=== PATIENT | male | born 1970 | race Hispanic/Latino ===

== ENCOUNTER 2020-06-03 16:01 | Observation (INO) | payer BC ==
--- NOTE | 2020-06-04 02:25 | Emergency Department Report ---
ED General Adult HPI - General Chief complaint: Dyspnea/Respdistress Stated complaint: SOB/SWELLING PUI?: No Time Seen by Provider: 06/04/20 02:17 Source: patient, RN notes reviewed Mode of arrival: Ambulatory Limitations: No Limitations - History of Present Illness Initial comments: The patient was evaluated in the emergency department for symptoms described in the history of present illness. He/she was evaluated in the context of the global COVID-19 pandemic, which necessitated consideration that the patient might be at risk for infection with the virus that causes COVID-19. Institutional protocols and algorithms that pertain to the evaluation of patients at risk for COVID-19 are in a state of rapid change based on i nformation released by regulatory bodies including the CDC and federal and state organizations. These policies and algorithms were followed during the patient's care in the emergency department. Please note that these policies, procedures and recommendations changed on a rapid basis. The patient is a pleasant 50-year-old gentleman who is not known to myself previously. He has a history of type 2 diabetes He presents to the ER today with a complaint of painless shortness of breath, swelling, and unintentional weight gain. This has been going on for about the past month. He denies physical pain. He denies headache, neck pain, chest pain, abdominal pain. He denies unintentional 30 pound weight gain, swelling in his abdomen, lower extremities, and scrotum. He denies hematemesis and bright red blood per rectum. He denies loss of taste and smell. He has a relatively new onset exertional shortness of breath, which started over the past few weeks. -: Gradual, week(s) Location: abdomen, genitals, left, right, lower extremity Consistency: constant Improves with: none Worsens with: none - Related Data Home Medications Medication Instructions Recorded Confirmed Last Taken HumaLOG 7 units SUB-Q QACHS 06/04/20 06/04/20 Unknown Insulin Detemir (Nf) [Levemir 06/04/20 Unknown Flextouch (Nf)] Insulin Detemir (Nf) [Levemir 22 unit SQ QHS 06/04/20 06/04/20 Unknown Flextouch (Nf)] Previous Rx's Medication Instructions Recorded Last Taken Type Furosemide [Lasix] 20 mg PO QDAY #30 tablet 10/02/20 Unknown Rx carvediloL [Coreg] 12.5 mg PO BID #60 tablet 06/06/20 Unknown Rx hydrALAZINE [Apresoline TAB] 25 mg PO Q8HR #90 tablet 06/06/20 Unknown Rx lisinopriL [Zestril TAB] 20 mg PO DAILY #30 tablet 06/06/20 Unknown Rx Allergies Allergy/AdvReac Type Severity Reaction Status Date / Time No Known Allergies Allergy Unverified 06/03/20 16:17 ED Review of Systems ROS: Stated complaint: SOB/SWELLING Other details as noted in HPI Constitutional: malaise. denies: fever Eyes: denies: eye discharge ENT: congestion Respiratory: orthopnea, shortness of breath, SOB with exertion, SOB at rest. denies: cough Cardiovascular: dyspnea on exertion, orthopnea, edema. denies: chest pain Gastrointestinal: denies: nausea, vomiting, hematemesis, melena, hematochezia Genitourinary: as per HPI, other (Scrotal swelling, but no pain). denies: urgency, dysuria, testicular pain, testicular mass Neurological: weakness Hematological/Lymphatic: denies: easy bleeding ED Past Medical Hx - Past Medical History Hx Diabetes: Yes Hx HIV: Yes - Surgical History Additional Surgical History: removal small left toe - Social History Smoking Status: Never Smoker Substance Use Type: None - Medications Home Medications: Home Medications Medication Instructions Recorded Confirmed Last Taken Type HumaLOG 7 units SUB-Q QACHS 06/04/20 06/04/20 Unknown History Insulin Detemir (Nf) [Levemir 06/04/20 Unknown History Flextouch (Nf)] Insulin Detemir (Nf) [Levemir 22 unit SQ QHS 06/04/20 06/04/20 Unknown History Flextouch (Nf)] Furosemide [Lasix] 20 mg PO QDAY #30 tablet 06/06/20 Unknown Rx carvediloL [Coreg] 12.5 mg PO BID #60 tablet 06/06/20 Unknown Rx hydrALAZINE [Apresoline TAB] 25 mg PO Q8HR #90 tablet 06/06/20 Unknown Rx lisinopriL [Zestril TAB] 20 mg PO DAILY #30 tablet 06/06/20 Unknown Rx ED Physical Exam - General Limitations: No Limitations General appearance: alert, in no apparent distress - Head Head exam: Present: atraumatic, normocephalic - Eye Eye exam: Present: normal appearance, EOMI, other (Bilateral conjunctiva are pale.). Absent: nystagmus - ENT ENT exam: Present: normal exam, normal orophraynx, mucous membranes moist, normal external ear exam - Neck Neck exam: Present: normal inspection - Respiratory Respiratory exam: Present: normal lung sounds bilaterally. Absent: respiratory distress, wheezes, rales, rhonchi, stridor, decreased breath sounds - Cardiovascular Cardiovascular Exam: Present: regular rate, normal rhythm, normal heart sounds. Absent: bradycardia, tachycardia, irregular rhythm, systolic murmur, diastolic murmur, rubs, gallop - GI/Abdominal GI/Abdominal exam: Present: soft, distended, normal bowel sounds, other (Fluid wave is noted). Absent: tenderness, guarding, rebound, rigid, pulsatile mass - Rectal Rectal exam: Present: deferred - Extremities Exam Extremities exam: Present: normal inspection, full ROM, pedal edema (3+ edema in the bilateral lower extremity), other (2+ pulses noted in the bilateral upper and lower extremities. There is no palpable cord. negative Homans sign. Muscular compartments are soft. The pelvis is stable.). Absent: calf tenderness - Back Exam Back exam: Present: normal inspection, full ROM. Absent: tenderness, CVA tenderness (R), CVA tenderness (L), paraspinal tenderness, vertebral tenderness - Neurological Exam Neurological exam: Present: alert, oriented X3, normal gait, other (No facial droop. Tongue midline. Extraocular movements intact bilaterally. Facial sensation intact to light touch in V1, V2, V3 distribution bilaterally. 5 and a 5 strength in 4 extremities. Sensation intact to light touch in 4 extremities.). Absent: motor sensory deficit - Psychiatric Psychiatric exam: Present: normal affect, normal mood - Skin Skin exam: Present: warm, dry, intact, normal color. Absent: rash ED Course Vital Signs 06/03/20 06/04/20 06/04/20 16:16 03:00 03:15 Temperature 97.8 F Pulse Rate 80 76 76 Respiratory 18 18 20 Rate Blood Pressure 168/99 182/99 186/102 Blood Pressure [Left] O2 Sat by Pulse 98 98 98 Oximetry 06/04/20 06/04/20 06/04/20 03:30 03:45 03:48 Temperature 97.6 F Pulse Rate 76 75 76 Respiratory 22 18 23 Rate Blood Pressure 185/98 179/93 Blood Pressure 179/93 [Left] O2 Sat by Pulse 98 94 97 Oximetry 06/04/20 06/04/20 06/04/20 04:30 04:45 05:00 Temperature Pulse Rate 76 76 76 Respiratory 21 19 18 Rate Blood Pressure 185/99 182/100 173/91 Blood Pressure [Left] O2 Sat by Pulse 98 97 99 Oximetry 06/04/20 06/04/20 06/04/20 05:15 05:30 05:45 Temperature Pulse Rate 75 75 76 Respiratory 18 13 19 Rate Blood Pressure 165/84 165/84 171/94 Blood Pressure [Left] O2 Sat by Pulse 97 97 98 Oximetry 06/04/20 06/04/20 06/04/20 06:00 06:15 06:44 Temperature Pulse Rate 74 74 84 Respiratory 18 18 15 Rate Blood Pressure 168/88 172/93 172/93 Blood Pressure [Left] O2 Sat by Pulse 96 98 97 Oximetry 06/04/20 06/04/20 06/04/20 06:46 07:00 07:15 Temperature Pulse Rate 79 76 73 Respiratory 22 19 14 Rate Blood Pressure 139/80 139/80 171/85 Blood Pressure [Left] O2 Sat by Pulse 98 98 97 Oximetry 06/04/20 06/04/20 06/04/20 07:30 07:46 08:00 Temperature Pulse Rate 76 76 77 Respiratory 19 19 16 Rate Blood Pressure 156/80 156/80 165/82 Blood Pressure [Left] O2 Sat by Pulse 96 94 97 Oximetry 06/04/20 06/04/20 06/04/20 08:16 08:30 08:45 Temperature Pulse Rate 77 76 76 Respiratory 15 13 13 Rate Blood Pressure 165/82 Blood Pressure [Left] O2 Sat by Pulse 93 96 97 Oximetry 06/04/20 06/04/20 06/04/20 09:01 09:15 09:31 Temperature Pulse Rate 78 78 79 Respiratory 17 20 19 Rate Blood Pressure 152/64 238/126 238/126 Blood Pressure [Left] O2 Sat by Pulse 95 98 98 Oximetry 06/04/20 06/04/20 09:45 10:01 Temperature Pulse Rate 75 76 Respiratory 16 15 Rate Blood Pressure 132/63 132/63 Blood Pressure [Left] O2 Sat by Pulse 98 98 Oximetry - Reevaluation(s) Reevaluation #1: 06/04/20 03:32 Differential diagnosis, including but not limited to: Renal insufficiency, hepatic insufficiency, congestive heart failure Assessment and plan: 50-year-old gentleman with obvious lower extremity edema, ascites, appears quite pale, without DVT or pulmonary embolism risk factors, denies hematemesis and bright red blood per rectum, showing obvious evidence of fluid overload. Appropriate laboratory studies ordered and pending. X-ray of the chest, EKG, ordered and pending. We anticipate need for admission once initial diagnostics have resulted. Discussed this plan of care with the patient, who verbalized understanding, and who is amenable to this plan of care. Reevaluation #2: 06/04/20 04:50 Laboratory studies demonstrate thrombocytopenia, microcytic anemia, elevated troponin, likely type II troponin leak, elevated proBNP, and pleural effusions. Suspect congestive heart failure. Patient is amenable to hospitalization. He denies hematemesis and bright red blood per rectum. He is never had a colonoscopy. He denies unintentional weight loss. Lasix is ordered. Hospital physician will be paged to arrange admission. Care will be transferred to the oncoming ER physician, Dr. Ruiz to admit patient to the hospitalist service. 06/04/20 05:42 ED Medical Decision Making - Lab Data Result diagrams: 06/05/20 06:30 06/06/20 04:16 Vital Signs 06/03/20 16:16 Temperature 97.8 F Pulse Rate 80 Respiratory 18 Rate Blood Pressure 168/99 O2 Sat by Pulse 98 Oximetry Lab Results 06/04/20 06/04/20 Range/Units 02:34 02:34 WBC 2.3 L (4.5-11.0) K/mm3 RBC 3.39 L (3.65-5.03) M/mm3 Hgb 8.8 L (11.8-15.2) gm/dl Hct 26.4 L (35.5-45.6) % MCV 78 L (84-94) fl MCH 26 L (28-32) pg MCHC 33 (32-34) % RDW 17.9 H (13.2-15.2) % Plt Count 79 L (140-440) K/mm3 Lymph % (Auto) 34.8 (13.4-35.0) % Trinity % (Auto) 11.5 H (0.0-7.3) % Eos % (Auto) 3.8 (0.0-4.3) % Baso % (Auto) 0.8 (0.0-1.8) % Lymph # (Auto) 0.8 L (1.2-5.4) K/mm3 Trinity # (Auto) 0.3 (0.0-0.8) K/mm3 Eos # (Auto) 0.1 (0.0-0.4) K/mm3 Baso # (Auto) 0.0 (0.0-0.1) K/mm3 Seg Neutrophils % 49.1 (40.0-70.0) % Seg Neutrophils # 1.1 L (1.8-7.7) K/mm3 PT 12.4 (12.2-14.9) Sec. INR 0.91 (0.87-1.13) APTT 29.2 (24.2-36.6) Sec. Vital Signs 06/03/20 06/04/20 06/04/20 16:16 03:00 03:15 Temperature 97.8 F Pulse Rate 80 76 76 Respiratory 18 18 20 Rate Blood Pressure 168/99 182/99 186/102 Blood Pressure [Left] O2 Sat by Pulse 98 98 98 Oximetry 06/04/20 06/04/20 06/04/20 03:30 03:45 03:48 Temperature 97.6 F Pulse Rate 76 75 76 Respiratory 22 18 23 Rate Blood Pressure 185/98 179/93 Blood Pressure 179/93 [Left] O2 Sat by Pulse 98 94 97 Oximetry Lab Results 06/04/20 06/04/20 06/04/20 Range/Units 02:34 02:34 02:34 WBC 2.3 L (4.5-11.0) K/mm3 RBC 3.39 L (3.65-5.03) M/mm3 Hgb 8.8 L (11.8-15.2) gm/dl Hct 26.4 L (35.5-45.6) % MCV 78 L (84-94) fl MCH 26 L (28-32) pg MCHC 33 (32-34) % RDW 17.9 H (13.2-15.2) % Plt Count 79 L (140-440) K/mm3 Lymph % (Auto) 34.8 (13.4-35.0) % Trinity % (Auto) 11.5 H (0.0-7.3) % Eos % (Auto) 3.8 (0.0-4.3) % Baso % (Auto) 0.8 (0.0-1.8) % Lymph # (Auto) 0.8 L (1.2-5.4) K/mm3 Trinity # (Auto) 0.3 (0.0-0.8) K/mm3 Eos # (Auto) 0.1 (0.0-0.4) K/mm3 Baso # (Auto) 0.0 (0.0-0.1) K/mm3 Seg Neutrophils % 49.1 (40.0-70.0) % Seg Neutrophils # 1.1 L (1.8-7.7) K/mm3 PT 12.4 (12.2-14.9) Sec. INR 0.91 (0.87-1.13) APTT 29.2 (24.2-36.6) Sec. Sodium 135 L (137-145) mmol/L Potassium 4.6 (3.6-5.0) mmol/L Chloride 108.4 H (98-107) mmol/L Carbon Dioxide 19 L (22-30) mmol/L Anion Gap 12 mmol/L BUN 24 H (9-20) mg/dL Creatinine 1.3 (0.8-1.3) mg/dL Estimated GFR 58 ml/min BUN/Creatinine Ratio 18 % Glucose 162 H (75-100) mg/dL Calcium 8.1 L (8.4-10.2) mg/dL Magnesium 2.10 (1.7-2.3) mg/dL Total Bilirubin 0.30 (0.1-1.2) mg/dL AST 17 (5-40) units/L ALT 12 (7-56) units/L Alkaline Phosphatase 71 (35-129) units/L Total Creatine Kinase 147 (55-170) units/L Troponin T 0.038 H (0.00-0.029) ng/mL NT-Pro-B Natriuret Pep 4134 H (0-900) pg/mL Total Protein 5.8 L (6.3-8.2) g/dL Albumin 2.4 L (3.9-5) g/dL Albumin/Globulin Ratio 0.7 % Triglycerides 140 (2-149) mg/dL Cholesterol 134 (50-199) mg/dL LDL Cholesterol Direct 80 (50-130) mg/dL HDL Cholesterol 35 L (40-59) mg/dL Cholesterol/HDL Ratio 3.82 % Ur Reducing Substances Urine Bilirubin (Negative) Urine Ictotest Urine RBC (Auto) (0.0-6.0) /HPF U Epithel Cells (Auto) (0-13.0) /HPF 06/04/20 Range/Units Unknown WBC (4.5-11.0) K/mm3 RBC (3.65-5.03) M/mm3 Hgb (11.8-15.2) gm/dl Hct (35.5-45.6) % MCV (84-94) fl MCH (28-32) pg MCHC (32-34) % RDW (13.2-15.2) % Plt Count (140-440) K/mm3 Lymph % (Auto) (13.4-35.0) % Trinity % (Auto) (0.0-7.3) % Eos % (Auto) (0.0-4.3) % Baso % (Auto) (0.0-1.8) % Lymph # (Auto) (1.2-5.4) K/mm3 Trinity # (Auto) (0.0-0.8) K/mm3 Eos # (Auto) (0.0-0.4) K/mm3 Baso # (Auto) (0.0-0.1) K/mm3 Seg Neutrophils % (40.0-70.0) % Seg Neutrophils # (1.8-7.7) K/mm3 PT (12.2-14.9) Sec. INR (0.87-1.13) APTT (24.2-36.6) Sec. Sodium (137-145) mmol/L Potassium (3.6-5.0) mmol/L Chloride (98-107) mmol/L Carbon Dioxide (22-30) mmol/L Anion Gap mmol/L BUN (9-20) mg/dL Creatinine (0.8-1.3) mg/dL Estimated GFR ml/min BUN/Creatinine Ratio % Glucose (75-100) mg/dL Calcium (8.4-10.2) mg/dL Magnesium (1.7-2.3) mg/dL Total Bilirubin (0.1-1.2) mg/dL AST (5-40) units/L ALT (7-56) units/L Alkaline Phosphatase (35-129) units/L Total Creatine Kinase (55-170) units/L Troponin T (0.00-0.029) ng/mL NT-Pro-B Natriuret Pep (0-900) pg/mL Total Protein (6.3-8.2) g/dL Albumin (3.9-5) g/dL Albumin/Globulin Ratio % Triglycerides (2-149) mg/dL Cholesterol (50-199) mg/dL LDL Cholesterol Direct (50-130) mg/dL HDL Cholesterol (40-59) mg/dL Cholesterol/HDL Ratio % Ur Reducing Substances Not Reportable Urine Bilirubin Neg (Negative) Urine Ictotest Not Reportable Urine RBC (Auto) 2.0 (0.0-6.0) /HPF U Epithel Cells (Auto) 2.0 (0-13.0) /HPF - EKG Data -: EKG Interpreted by Ca EKG shows normal: sinus rhythm Rate: normal - EKG Data 06/04/20 03:33 This is a sinus rhythm, 77 bpm, there is a normal axis, the QTC is prolonged, th ere is motion artifact, there is poor R wave progression. The EKG is abnormal. The EKG is not a STEMI. - Radiology Data Radiology results: pending, report reviewed, image reviewed Critical care attestation.: If time is entered above; I have spent that time in minutes in the direct care of this critically ill patient, excluding procedure time. ED Disposition Clinical Impression: Congestive heart failure, Fluid overload, Microcytic anemia, Thrombocytopenia Disposition: OP ADMIT IP TO THIS HOSP Is pt being admited?: Yes Does the pt Need Aspirin: Yes Condition: Good
[2020-06-04 03:11] LABS: Hematocrit 26.4 % (35.5-45.6); Hemoglobin 8.8 gm/dl (11.8-15.2); Mean Corpuscular HGB Conc 33 % (32-34); Mean Corpuscular Volume 78 fl (84-94); Red Blood Count 3.39 M/mm3 (3.65-5.03); Red Cell Distribution Width 17.9 % (13.2-15.2)
[2020-06-04 03:16] LABS: Platelet Count 79 K/mm3 (140-440)
[2020-06-04 03:17] LABS: Basophils % (Auto) 0.8 % (0.0-1.8); Eosinophils # (Auto) 0.1 K/mm3 (0.0-0.4); Eosinophils % (Auto) 3.8 % (0.0-4.3); Lymphocytes # (Auto) 0.8 K/mm3 (1.2-5.4); Lymphocytes % (Auto) 34.8 % (13.4-35.0); Monocytes # (Auto) 0.3 K/mm3 (0.0-0.8); Monocytes % (Auto) 11.5 % (0.0-7.3)
[2020-06-04 03:21] LABS: INR 0.91 (0.87-1.13); Partial Thromboplastin Time 29.2 Sec. (24.2-36.6)
[2020-06-04 03:58] LABS: Albumin 2.4 g/dL (3.9-5); Calcium 8.1 mg/dL (8.4-10.2)
[2020-06-04 04:16] LABS: Chol/HDL Ratio 3.82 %
[2020-06-04] MEDS ORDERED: FUROSEMIDE 40 MG/4 ML INJ IV ONE (04:17)
--- NOTE | 2020-06-04 04:19 | XRay Report ---
CHEST 1 VIEW 06/04/2020 4:05 AM INDICATION / CLINICAL INFORMATION: Dyspnea. COMPARISON: None available. FINDINGS: SUPPORT DEVICES: None. HEART / MEDIASTINUM: No significant abnormality. LUNGS / PLEURA: There are small bilateral pleural effusions. No pneumothorax. ADDITIONAL FINDINGS: No significant additional findings. IMPRESSION: 1. Small bilateral pleural effusions without additional significant abnormality. Signer Name: Emanuel Guzman MD Signed: 06/04/2020 4:14 AM Workstation Name: [employer]
[2020-06-04 04:47] LABS: Bacteria,Urine 1+ /HPF (Negative); Bilirubin,Urine NEG (Negative); Blood,Urine MOD (Negative); Color,Urine Yellow (Yellow); Hyaline Casts,Urine 26 /LPF; Mucus,Urine 1+ /HPF; Urobilinogen,Urine < 2.0 mg/dL (<2.0)
[2020-06-04] MEDS ORDERED: ASPIRIN 81 MG TAB CHEW PO ONE (04:52)
[2020-06-04 04:57] LABS: Protein,Urine >500 mg/dL (Negative)
--- NOTE | 2020-06-04 08:08 | History and Physical Report ---
History of Present Illness Date of examination: 06/04/20 Date of admission: 06/04/20 Chief complaint: Worsening shortness of breath Worsening leg edema for the last 4 weeks History of present illness: 50-year-old male patient with significant past medical history of type 2 diabetes mellitus, hypertension and HIV not on antiretrovirals presented to the emergency room with complaints of worsening leg edema and worsening shortness of breath off-and-on for the last 4 weeks Patient also complains of unintentional weight gain with edema of lower extremities and scrotum Patient also complains of exertional dyspnea and orthopnea, Mild chest discomfort Patient denies nausea vomiting or abdominal pain Patient denies headache dizziness weakness or numbness Initial work-up in the emergency room X-ray chest. Bilateral pleural effusion Elevated proBNP. Pancytopenia EKG no acute ST-T changes Past History Past Medical History: diabetes, HIV/AIDS, hypertension Past Surgical History: Other (Toe removal) Social history: full code. denies: smoking, alcohol abuse Family history: hypertension Medications and Allergies Allergies Allergy/AdvReac Type Severity Reaction Status Date / Time No Known Allergies Allergy Unverified 06/03/20 16:17 Home Medications Medication Instructions Recorded Confirmed Last Taken Type HumaLOG 7 units SUB-Q QACHS 06/04/20 06/04/20 Unknown History Insulin Detemir (Nf) [Levemir 06/04/20 Unknown History Flextouch (Nf)] Insulin Detemir (Nf) [Levemir 22 unit SQ QHS 06/04/20 06/04/20 Unknown History Flextouch (Nf)] Review of Systems Constitutional: weight gain, weakness, no fever, no chills Ears, nose, mouth and throat: no nasal congestion, no nasal discharge Cardiovascular: chest pain, orthopnea, shortness of breath, leg edema, no palpitations, no syncope Respiratory: shortness of breath, dyspnea on exertion, no cough, no hemoptysis Gastrointestinal: no abdominal pain, no nausea, no vomiting Genitourinary Male: other (Scrotal edema), no dysuria, no hematuria Musculoskeletal: no myalgias, no arthritis Integumentary: no rash, no lesions Neurological: no weakness, no parathesias, no numbness, no syncope Psychiatric: no anxiety, no depression Hematologic/Lymphatic: no easy bruising, no easy bleeding Allergic/Immunologic: no urticaria, no allergic rhinitis Exam - Constitutional Vitals: Temp Pulse Resp BP Pulse Ox 97.6 F 79 22 139/80 98 06/04/20 03:48 06/04/20 06:46 06/04/20 06:46 06/04/20 06:46 06/04/20 06:46 General appearance: Present: mild distress, well-nourished - EENT Eyes: Present: PERRL, EOM intact - Neck Neck: Present: supple, normal ROM - Respiratory Respiratory effort: normal Respiratory: bilateral: diminished, rales, negative: rhonchi, wheezing - Cardiovascular Rhythm: regular Heart Sounds: Present: S1 & S2 - Extremities Extremities: no ischemia Extremity abnormal: edema - Abdominal General gastrointestinal: Present: soft, non-tender, non-distended, normal bowel sounds, other (Edema abdominal wall) - Integumentary Integumentary: Present: clear, warm - Musculoskeletal Musculoskeletal: generalized weakness - Psychiatric Psychiatric: appropriate mood/affect, cooperative - Neurologic Neurologic: moves all extremities HEART Score - HEART Score Troponin: Troponin T 0.038 ng/mL (0.00-0.029) H 06/04/20 02:34 Results - Labs CBC & Chem 7: 06/04/20 02:34 06/04/20 02:34 Labs: Abnormal lab results 06/04/20 06/04/20 Range/Units 02:34 02:34 WBC 2.3 L (4.5-11.0) K/mm3 RBC 3.39 L (3.65-5.03) M/mm3 Hgb 8.8 L (11.8-15.2) gm/dl Hct 26.4 L (35.5-45.6) % MCV 78 L (84-94) fl MCH 26 L (28-32) pg RDW 17.9 H (13.2-15.2) % Plt Count 79 L (140-440) K/mm3 [place] % (Auto) 11.5 H (0.0-7.3) % Lymph # (Auto) 0.8 L (1.2-5.4) K/mm3 Seg Neutrophils # 1.1 L (1.8-7.7) K/mm3 Sodium 135 L (137-145) mmol/L Chloride 108.4 H (98-107) mmol/L Carbon Dioxide 19 L (22-30) mmol/L BUN 24 H (9-20) mg/dL Glucose 162 H (75-100) mg/dL Calcium 8.1 L (8.4-10.2) mg/dL Troponin T 0.038 H (0.00-0.029) ng/mL NT-Pro-B Natriuret Pep 4134 H (0-900) pg/mL Total Protein 5.8 L (6.3-8.2) g/dL Albumin 2.4 L (3.9-5) g/dL HDL Cholesterol 35 L (40-59) mg/dL Assessment and Plan --Worsening leg edema/possible congestive heart failure IV diuretics, elevate the limb, input output monitoring Echocardiogram for LV function ejection fraction --Mild hyponatremia; Secondary to fluid overload, IV diuretics Closely monitor electrolytes --Congestive heart failure/probably new onset Elevated BNP, worsening edema, shortness of breath IV diuretics, input output monitoring, beta-blockers CONCEPCIÓN inhibitors, fluid restriction, low-sodium diet Echocardiogram for LV function ejection fraction Cardiology consult if needed --Non-ST elevation ND; elevated troponins Probably nonspecific in the setting of congestive heart failure Serial cardiac enzymes, echocardiogram for LV function ejection fraction Cardiology consult if needed --History of type 2 diabetes mellitus; Accu-Cheks, sliding scale coverage, ADA diet Insulin as needed --Hypertensive urgency; present on admission Closely monitor blood pressures, add antihypertensives PRN medications --History of HIV; not on any medications Patient has an appointment to see infectious diseases next week --Pancytopenia; probably secondary to underlying HIV disease --Severe protein calorie malnutrition; nutrition supplements Supportive care, nutrition consult --DVT prophylaxis; Lovenox We will closely monitor the patient and adjust management as needed Plan of care reviewed with the patient and his nurse in the ED Follow echocardiogram, cardiology consult if needed I spent total 50 minutes coordinating this admission
[2020-06-04] MEDS ORDERED: INSULIN LISPRO 100 UNIT/ML VIAL 3 mL SUB-Q NR (08:27)
[2020-06-04 11:27] LABS: Creatine Kinase MB 9.1 ng/mL (0.0-4.0)
[2020-06-04] MEDS: ASPIRIN 81 MG TAB CHEW PO SCH (16:12)
[2020-06-04] MEDS: FUROSEMIDE 40 MG/4 ML INJ IV SCH (16:12)
[2020-06-04] MEDS: ENOXAPARIN 40 MG/0.4 ML INJ SUB-Q SCH (21:37)
[2020-06-04] MEDS: carvediloL 12.5 MG TAB PO SCH (21:37)
[2020-06-04] MEDS: LISINOPRIL 20 MG TAB PO SCH (21:37)
[2020-06-04] MEDS: hydrALAZINE 25 MG TAB PO SCH (21:37)
[2020-06-05 02:41] LABS: Creatine Kinase MB 6.8 ng/mL (0.0-4.0)
[2020-06-05] MEDS: hydrALAZINE 25 MG TAB PO SCH ×3 (05:40→22:00)
[2020-06-05 07:13] LABS: Hematocrit 23.1 % (35.5-45.6); Hemoglobin 7.9 gm/dl (11.8-15.2); Mean Corpuscular HGB Conc 34 % (32-34); Mean Corpuscular Volume 77 fl (84-94); Red Cell Distribution Width 18.1 % (13.2-15.2)
[2020-06-05 07:14] LABS: Platelet Count 70 K/mm3 (140-440)
[2020-06-05 07:38] LABS: Creatine Kinase MB 4.9 ng/mL (0.0-4.0)
[2020-06-05 07:42] LABS: Alanine Aminotransferase 8 units/L (7-56); Albumin 1.9 g/dL (3.9-5); BUN/Creatinine Ratio 20; Blood Urea Nitrogen 26 mg/dL (9-20); Calcium 8.1 mg/dL (8.4-10.2); Hemolysis Index 7
[2020-06-05 07:46] LABS: Bilirubin,Direct < 0.2 mg/dL (0-0.2)
--- NOTE | 2020-06-05 09:42 | Consultation ---
History of Present Illness Consult date: 06/05/20 Requesting physician: TANYA SALAZAR Consult reason: elevated troponin, shortness of breath History of present illness: The pt is a 50-year-old male with a past medical history of HTN, DM, HIV not on antiretrovirals. He is previously unknown to our practice. He presented with c/o worsening SOB, orthopnea, BLE edema, scrotal edema for approx the past 1 month. He denies chest pain, palpitations, n/v, diaphoresis, dizziness or syncope. Admission CXR shows bilateral pleural effusions. Labwork significant for H/H 7.9/23.1, plt 70K, WBC 2.1, pro-BNP >4K, minimally elevated troponin. Past History Past Medical History: diabetes, HIV/AIDS, hypertension Past Surgical History: Other (Toe removal) Social history: full code. denies: smoking, alcohol abuse Family history: hypertension Medications and Allergies Allergies Allergy/AdvReac Type Severity Reaction Status Date / Time No Known Allergies Allergy Unverified 06/03/20 16:17 Home Medications Medication Instructions Recorded Confirmed Last Taken Type HumaLOG 7 units SUB-Q QACHS 06/04/20 06/04/20 Unknown History Insulin Detemir (Nf) [Levemir 06/04/20 Unknown History Flextouch (Nf)] Insulin Detemir (Nf) [Levemir 22 unit SQ QHS 06/04/20 06/04/20 Unknown History Flextouch (Nf)] Active Meds: Active Medications Aspirin (Baby Aspirin) 81 mg PO QDAY [facility] Last Admin: 06/04/20 16:12 Dose: 81 mg Documented by: Carvedilol (Coreg) 12.5 mg PO BID [facility] Last Admin: 06/04/20 21:37 Dose: 12.5 mg Documented by: Enoxaparin Sodium (Enoxaparin) 40 mg SUB-Q QDAY@2200 [facility]; Protocol Last Admin: 06/04/20 21:37 Dose: 40 mg Documented by: Furosemide (Lasix) 40 mg IV QDAY [facility] Last Admin: 06/04/20 16:12 Dose: 40 mg Documented by: Hydralazine HCl (Apresoline) 25 mg PO Q8HR [facility] Last Admin: 06/05/20 05:40 Dose: 25 mg Documented by: Labetalol HCl (Labetalol) 10 mg IV Q4H PRN PRN Reason: Hypertension Lisinopril (Zestril) 20 mg PO BID MIKAELA Last Admin: 06/04/20 21:37 Dose: 20 mg Documented by: Review of Systems Constitutional: weight gain, no fever, no chills, no sweats Ears, nose, mouth and throat: no ear pain, no nose pain, no sinus pressure, no sinus pain Cardiovascular: orthopnea, edema, shortness of breath, dyspnea on exertion, paroxysmal nocturnal dyspnea, leg edema, decreased exercise tolerance, no chest pain, no palpitations, no rapid/irregular heart beat, no syncope, no lightheadedness Respiratory: shortness of breath, dyspnea on exertion, no cough, no congestion, no wheezing, no pain on inspiration Gastrointestinal: no abdominal pain, no nausea, no vomiting, no diarrhea, no constipation, no change in bowel habits Genitourinary Male: no dysuria, no hematuria, no flank pain, no discharge, no urinary frequency, no urinary hesitancy Musculoskeletal: no neck stiffness, no neck pain, no shooting arm pain, no arm numbness/tingling, no low back pain, no shooting leg pain Integumentary: no rash, no pruritis, no redness, no sores, no wounds Neurological: no head injury, no paralysis, no weakness, no parathesias, no numbness, no tingling, no seizures, no syncope Psychiatric: no anxiety Endocrine: no cold intolerance, no heat intolerance Hematologic/Lymphatic: no easy bruising, no easy bleeding Allergic/Immunologic: no urticaria Physical Examination Vital Signs Temp Pulse Resp BP Pulse Ox 97.8 F 80 18 168/99 98 06/03/20 16:16 06/03/20 16:16 06/03/20 16:16 06/03/20 16:16 06/03/20 16:16 General appearance: no acute distress HEENT: Positive: PERRL, Normocephaly, Mucus Membranes Moist Neck: Positive: neck supple, trachea midline Cardiac: Positive: Reg Rate and Rhythm, S1/S2 Lungs: Positive: Decreased Breath Sounds Neuro: Positive: Grossly Intact Abdomen: Negative: Tender Skin: Negative: Rash Musculoskeletal: No Fluid Collection, No Pain, Normal Range of Motion Extremities: Absent: edema Results 06/05/20 06:30 06/05/20 06:30 Cardiac Enzymes 06/04/20 06/05/20 06/05/20 Range/Units 10:56 00:24 06:30 AST 14 (5-40) units/L CK-MB (CK-2) 9.1 H 6.8 H 4.9 H (0.0-4.0) ng/mL CBC 06/05/20 Range/Units 06:30 WBC 2.1 L (4.5-11.0) K/mm3 RBC 3.00 L (3.65-5.03) M/mm3 Hgb 7.9 L (11.8-15.2) gm/dl Hct 23.1 L (35.5-45.6) % Plt Count 70 L (140-440) K/mm3 Comprehensive Metabolic Panel 06/05/20 Range/Units 06:30 Sodium 142 D (137-145) mmol/L Potassium 4.6 (3.6-5.0) mmol/L Chloride 113.4 H (98-107) mmol/L Carbon Dioxide 22 (22-30) mmol/L BUN 26 H (9-20) mg/dL Creatinine 1.3 (0.8-1.3) mg/dL Glucose 182 H (75-100) mg/dL Calcium 8.1 L (8.4-10.2) mg/dL Direct Bilirubin < 0.2 (0-0.2) mg/dL Indirect Bilirubin 0.0 mg/dL AST 14 (5-40) units/L ALT 8 (7-56) units/L Alkaline Phosphatase 63 (35-129) units/L Total Protein 5.0 L (6.3-8.2) g/dL Albumin 1.9 L (3.9-5) g/dL - Imaging and Cardiology Echo: report reviewed EKG: report reviewed, image reviewed EKG interpretations - Telemetry EKG Rhythm: Sinus Rhythm - EKG Sinus rhythms and dysrhythmias: sinus rhythm Assessment and Plan tte reviewed - EF 50-55%, impaired relaxation, mild TR, RVSP 36mmHg, large pleural effusion. ECG with NAF. Minimal CE elevation appears nonspecific at this time. Cont to trend and f/u ECG in AM. Agree with present cardiac management, including IV lasix. F/u pulmonary recs. Will follow. The patient has been seen in conjunction with Dr. Meyer who agrees with the assessment and plan of care. - Patient Problems (1) Acute heart failure with preserved ejection fraction Current Visit: Yes Status: Acute (2) Diastolic dysfunction Current Visit: Yes Status: Acute (3) Pleural effusion Current Visit: Yes Status: Acute (4) HTN (hypertension) Current Visit: Yes Status: Chronic (5) Diabetes Current Visit: Yes Status: Chronic (6) HIV (human immunodeficiency virus infection) Current Visit: Yes Status: Chronic (7) Pancytopenia Current Visit: Yes Status: Acute (8) Elevated troponin Current Visit: Yes Status: Acute
--- NOTE | 2020-06-05 10:09 | Progress Note ---
Assessment and Plan Assessment and plan: --Left pleural effusion; Associated with shortness of breath Pulmonary consultation, Continue IV diuretics Oxygen as needed. titrate O2 sats to more than 90% --Worsening leg edema/possible congestive heart failure IV diuretics, elevate the limb, input output monitoring Echocardiogram for LV function ejection fraction --Mild hyponatremia; Secondary to fluid overload, IV diuretics Closely monitor electrolytes --Acute diastolic congestive heart failure IV diuretics, input output monitoring, beta-blockers CONCEPCIÓN inhibitors, fluid restriction, low-sodium diet Echocardiogram EF 50 to 55% Cardiology following --Non-ST elevation LA; elevated troponins Probably nonspecific in the setting of congestive heart failure Serial cardiac enzymes elevated troponins Cardiology evaluated the patient Possible stress test prior to discharge --History of type 2 diabetes mellitus; Accu-Cheks, sliding scale coverage, ADA diet Insulin as needed --Hypertensive urgency; present on admission Closely monitor blood pressures, add antihypertensives PRN medications --History of HIV; not on any medications Patient has an appointment to see infectious diseases next week --Pancytopenia; probably secondary to underlying HIV disease Closely monitor --Severe protein calorie malnutrition; nutrition supplements Supportive care, nutrition consult --DVT prophylaxis; Lovenox We will closely monitor the patient and adjust management as needed Plan of care reviewed with the patient and his nurse. Discussed with analyst competitive intelligence Case discussed with pulmonary Dr. Javier and requested a consult We will closely monitor the patient and adjust management as needed Possible discharge in 1 to 2 days if stable History Interval history: I have seen and examined the patient in his room this morning Patient's chart and medications reviewed Patient feels slightly better, still continues to have mild shortness of breath Leg edema very minimal improvement Patient denies chest pain Alert awake oriented x3 Not in acute distress Vital signs noted Hospitalist Physical - Constitutional Vitals: Temp Pulse Resp BP Pulse Ox 98.9 F 86 18 150/75 95 06/05/20 07:32 06/05/20 07:32 06/05/20 07:32 06/05/20 07:32 06/05/20 07:32 General appearance: Present: no acute distress, well-nourished - EENT Eyes: Present: PERRL, EOM intact - Neck Neck: Present: supple, normal ROM - Respiratory Respiratory effort: normal Respiratory: bilateral: diminished (Left more than right), rales, negative: rhonchi, wheezing - Cardiovascular Rhythm: regular Heart Sounds: Present: S1 & S2 - Extremities Extremities: no ischemia Extremity abnormal: edema - Abdominal General gastrointestinal: soft, non-tender, non-distended, normal bowel sounds - Integumentary Integumentary: Present: clear, warm - Psychiatric Psychiatric: appropriate mood/affect, cooperative - Neurologic Neurologic: CNII-XII intact, moves all extremities HEART Score - HEART Score Troponin: Troponin T 0.050 ng/mL (0.00-0.029) H 06/05/20 06:30 Results - Labs CBC & Chem 7: 06/05/20 06:30 06/05/20 06:30 Labs: Laboratory Last Values WBC 2.1 K/mm3 (4.5-11.0) L 06/05/20 06:30 RBC 3.00 M/mm3 (3.65-5.03) L 06/05/20 06:30 Hgb 7.9 gm/dl (11.8-15.2) L 06/05/20 06:30 Hct 23.1 % (35.5-45.6) L 06/05/20 06:30 MCV 77 fl (84-94) L 06/05/20 06:30 MCH 26 pg (28-32) L 06/05/20 06:30 MCHC 34 % (32-34) 06/05/20 06:30 RDW 18.1 % (13.2-15.2) H 06/05/20 06:30 Plt Count 70 K/mm3 (140-440) L 06/05/20 06:30 Lymph % (Auto) 34.8 % (13.4-35.0) 06/04/20 02:34 [place] % (Auto) 11.5 % (0.0-7.3) H 06/04/20 02:34 Eos % (Auto) 3.8 % (0.0-4.3) 06/04/20 02:34 Baso % (Auto) 0.8 % (0.0-1.8) 06/04/20 02:34 Lymph # (Auto) 0.8 K/mm3 (1.2-5.4) L 06/04/20 02:34 [place] # (Auto) 0.3 K/mm3 (0.0-0.8) 06/04/20 02:34 Eos # (Auto) 0.1 K/mm3 (0.0-0.4) 06/04/20 02:34 Baso # (Auto) 0.0 K/mm3 (0.0-0.1) 06/04/20 02:34 Seg Neutrophils % 49.1 % (40.0-70.0) 06/04/20 02:34 Seg Neutrophils # 1.1 K/mm3 (1.8-7.7) L 06/04/20 02:34 PT 12.4 Sec. (12.2-14.9) 06/04/20 02:34 INR 0.91 (0.87-1.13) 06/04/20 02:34 APTT 29.2 Sec. (24.2-36.6) 06/04/20 02:34 Sodium 142 mmol/L (137-145) D 06/05/20 06:30 Potassium 4.6 mmol/L (3.6-5.0) 06/05/20 06:30 Chloride 113.4 mmol/L (98-107) H 06/05/20 06:30 Carbon Dioxide 22 mmol/L (22-30) 06/05/20 06:30 Anion Gap 11 mmol/L 06/05/20 06:30 BUN 26 mg/dL (9-20) H 06/05/20 06:30 Creatinine 1.3 mg/dL (0.8-1.3) 06/05/20 06:30 Estimated GFR 58 ml/min 06/05/20 06:30 BUN/Creatinine Ratio 20 % 06/05/20 06:30 Glucose 182 mg/dL (75-100) H 06/05/20 06:30 POC Glucose 191 (70-105) H 06/05/20 07:56 Hemoglobin A1c 8.1 % (4-6) H 06/04/20 10:56 Calcium 8.1 mg/dL (8.4-10.2) L 06/05/20 06:30 Phosphorus 4.70 mg/dL (2.5-4.5) H 06/05/20 06:30 Magnesium 2.00 mg/dL (1.7-2.3) 06/05/20 06:30 Total Bilirubin 0.20 mg/dL (0.1-1.2) 06/05/20 06:30 Direct Bilirubin < 0.2 mg/dL (0-0.2) 06/05/20 06:30 Indirect Bilirubin 0.0 mg/dL 06/05/20 06:30 AST 14 units/L (5-40) 06/05/20 06:30 ALT 8 units/L (7-56) 06/05/20 06:30 Alkaline Phosphatase 63 units/L (35-129) 06/05/20 06:30 Total Creatine Kinase 117 units/L (55-170) 06/05/20 06:30 CK-MB (CK-2) 4.9 ng/mL (0.0-4.0) H 06/05/20 06:30 CK-MB (CK-2) Rel Index 4.1 (0-4) H 06/05/20 06:30 Troponin T 0.050 ng/mL (0.00-0.029) H 06/05/20 06:30 NT-Pro-B Natriuret Pep 4134 pg/mL (0-900) H 06/04/20 02:34 Total Protein 5.0 g/dL (6.3-8.2) L 06/05/20 06:30 Albumin 1.9 g/dL (3.9-5) L 06/05/20 06:30 Albumin/Globulin Ratio 0.6 % 06/05/20 06:30 Triglycerides 140 mg/dL (2-149) 06/04/20 02:34 Cholesterol 134 mg/dL (50-199) 06/04/20 02:34 LDL Cholesterol Direct 80 mg/dL (50-130) 06/04/20 02:34 HDL Cholesterol 35 mg/dL (40-59) L 06/04/20 02:34 Cholesterol/HDL Ratio 3.82 % 06/04/20 02:34 Urine Color Yellow (Yellow) 06/04/20 Unknown Urine Turbidity Clear (Clear) 06/04/20 Unknown Urine pH 6.0 (5.0-7.0) 06/04/20 Unknown Ur Specific [place] 1.018 (1.003-1.030) 06/04/20 Unknown Urine Protein >500 mg/dL (Negative) 06/04/20 Unknown Urine Glucose (UA) 50 mg/dL (Negative) 06/04/20 Unknown Urine Ketones Neg mg/dL (Negative) 06/04/20 Unknown Urine Blood Mod (Negative) 06/04/20 Unknown Urine Nitrite Neg (Negative) 06/04/20 Unknown Ur Reducing Substances Not Reportable 06/04/20 Unknown Urine Bilirubin Neg (Negative) 06/04/20 Unknown Urine Ictotest Not Reportable 06/04/20 Unknown Urine Urobilinogen < 2.0 mg/dL (<2.0) 06/04/20 Unknown Ur Leukocyte Esterase Neg (Negative) 06/04/20 Unknown Urine WBC (Auto) 4.0 /HPF (0.0-6.0) 06/04/20 Unknown Urine RBC (Auto) 2.0 /HPF (0.0-6.0) 06/04/20 Unknown U Epithel Cells (Auto) 2.0 /HPF (0-13.0) 06/04/20 Unknown Urine Bacteria (Auto) 1+ /HPF (Negative) 06/04/20 Unknown Hyaline Casts 26 /LPF 06/04/20 Unknown Urine Mucus 1+ /HPF 06/04/20 Unknown Urine Yeast (Budding) Few /HPF 06/04/20 Unknown - Diagnostic Impressions Diagnostic Impressions: Echocardiogram 06/04/20 08:28 Transthoracic Echocardiogram Indication: Dyspnea BP: 139/80 HR: 79 Conclusions *A pericardial effusion is visualized. *Global left ventricular systolic function is normal. *The estimated ejection fraction is 50-55%. *Abnormal left ventricular diastolic filling is observed, consistent with impaired relaxation. *There is no evidence of aortic regurgitation. *There is trace of mitral regurgitation. *There is mild tricuspid regurgitation. *The right ventricular systolic pressure is calculated at 36 mmHg. *There is trace pulmonic regurgitation. *There is no pericardial effusion. *There is a large pleural effusion. Findings Left Ventricle: The left ventricular chamber size is normal. Global left ventricular wall motion and contractility are within normal limits. Global left ventricular systolic function is normal. The estimated ejection fraction is 50-55%. Abnormal left ventricular diastolic filling is observed, consistent with impaired relaxation. Left Atrium: The left atrial chamber size is normal. Right Ventricle: The right ventricular cavity size is normal. Right Atrium: The right atrial cavity size is normal. Aortic Valve: Mild aortic leaflet calcification is visualized. There is no evidence of aortic regurgitation. Mitral Valve: The mitral valve leaflets are mildly thickened. There is trace of mitral regurgitation. Tricuspid Valve: The tricuspid valve leaflets are normal. There is mild tricuspid regurgitation. The right ventricular systolic pressure is calculated at 36 mmHg. Pulmonic Valve: The pulmonic valve appears normal. There is trace pulmonic regurgitation. Pericardium: There is no pericardial effusion. There is a large pleural effusion. Aorta: The aorta appears normal. Measurements Chambers 2D Name Value Normal Range IVSd (2D) 1.04 cm (0.6 - 1.1) LVPWd (2D) 1 cm (0.6 - 1.1) LVIDd (2D) 4.93 cm (3.7 - 5.6) LVIDs (2D) 3.85 cm (2 - 3.8) LV FS (2D) 21.94 % - Ao root diameter (2D) 3.19 cm (2 - 3.7) Volumes/Mass Name Value Normal Range LA ESV SP 4CH (A/L) 35.52 ml - LA ESV SP 2CH (A/L) 38.67 ml - LA ESV BP (A/L) 37.97 ml - LA ESV BP (A/L) index 17.74 ml/m2 - LA ESV SP 4CH (MOD) 33.08 ml - LA ESV SP 2CH (MOD) 37.83 ml - LA ESV BP (MOD) 36.14 ml - LA ESV BP (MOD) index 16.89 ml/m2 - Diastolic/Systolic Function Name Value Normal Range MV E-wave Vmax 1.1 m/sec - MV deceleration time 163.34 msec - MV A-wave Vmax 1.17 m/sec - MV E:A ratio 0.95 ratio - Aortic Valve Name Value Normal Range AV Vmax 1.53 m/sec - AV VTI 30.47 cm - AV peak gradient 9.36 mmHg - AV mean gradient 4.9 mmHg - LVOT diameter 2.04 cm - LVOT Vmax 1.25 m/sec - LVOT VTI 25.94 cm - LVOT peak gradient 6.22 mmHg - LVOT mean gradient 3.37 mmHg - SV LVOT 84.77 ml - HEIDY (continuity Vmax) 2.66 cm2 - HEIDY (continuity VTI) 2.78 cm2 - Tricuspid Valve Name Value Normal Range TR Vmax 2.89 m/sec - TR peak gradient 33 mmHg - RAP 3 mmHg - RVSP 36 mmHg - IVC diameter 1.85 cm (1.2 - 2.3) Pulmonic Valve/Qp:Qs Name Value Normal Range PV Vmax 1.06 m/sec - PV peak gradient 4.47 mmHg - TN end-diastolic Vmax 0.94 m/sec - PV acceleration time 114.18 msec - Collins/IV: Voiding Method Toilet IV Catheter Type [Left INT / Saline Lock Antecubital] Active Medications - Current Medications Current Medications: Generic Name Dose Route Start Last Admin Trade Name Freq PRN Reason Stop Dose Admin Aspirin 81 mg 06/04/20 10:00 06/04/20 16:12 Baby Aspirin PO 81 mg QDAY MIKAELA Administration Carvedilol 12.5 mg 06/04/20 22:00 06/04/20 21:37 Coreg PO 12.5 mg BID MIKAELA Administration Enoxaparin Sodium 40 mg 06/04/20 22:00 06/04/20 21:37 Enoxaparin SUB-Q 40 mg QDAY@2200 MIKAELA Administration Protocol Furosemide 40 mg 06/04/20 10:00 06/04/20 16:12 Lasix IV 40 mg QDAY MIKAELA Administration Hydralazine HCl 25 mg 06/04/20 22:00 06/05/20 05:40 Apresoline PO 25 mg Q8HR MIKAELA Administration Labetalol HCl 10 mg 06/04/20 18:52 Labetalol IV Q4H PRN Hypertension Lisinopril 20 mg 06/04/20 22:00 06/04/20 21:37 Zestril PO 20 mg BID MIKAELA Administration
[2020-06-05] MEDS: ASPIRIN 81 MG TAB CHEW PO SCH (10:11)
[2020-06-05] MEDS: LISINOPRIL 20 MG TAB PO SCH ×2 (10:11→22:01)
--- NOTE | 2020-06-05 10:11 | Consultation ---
History of Present Illness Consult date: 06/05/20 Requesting physician: TANYA SALAZAR Reason for consult: pleural effusion History of present illness: 50 y/o male with HIV and HTN admitted with worsening LE edema and shortness of breath. CXR shows small bilateral effusions but cardiology suggested pulmonary consult when they suggest that the effusion the left side was large. Echo reveals diastolic dysfunction. BNP was greater than 4K on admission. Pulmonary has been consulted for left sided effusion. Past History Past Medical History: diabetes, HIV/AIDS, hypertension Past Surgical History: Other (Toe removal) Social history: full code. denies: smoking, alcohol abuse Family history: hypertension Medications and Allergies Allergies Allergy/AdvReac Type Severity Reaction Status Date / Time No Known Allergies Allergy Unverified 06/03/20 16:17 Home Medications Medication Instructions Recorded Confirmed Last Taken Type HumaLOG 7 units SUB-Q QACHS 06/04/20 06/04/20 Unknown History Insulin Detemir (Nf) [Levemir 06/04/20 Unknown History Flextouch (Nf)] Insulin Detemir (Nf) [Levemir 22 unit SQ QHS 06/04/20 06/04/20 Unknown History Flextouch (Nf)] Active Meds: Active Medications Aspirin (Baby Aspirin) 81 mg PO QDAY [facility] Last Admin: 06/04/20 16:12 Dose: 81 mg Documented by: Carvedilol (Coreg) 12.5 mg PO BID [facility] Last Admin: 06/04/20 21:37 Dose: 12.5 mg Documented by: Enoxaparin Sodium (Enoxaparin) 40 mg SUB-Q QDAY@2200 [facility]; Protocol Last Admin: 06/04/20 21:37 Dose: 40 mg Documented by: Furosemide (Lasix) 40 mg IV QDAY [facility] Last Admin: 06/04/20 16:12 Dose: 40 mg Documented by: Hydralazine HCl (Apresoline) 25 mg PO Q8HR [facility] Last Admin: 06/05/20 05:40 Dose: 25 mg Documented by: Labetalol HCl (Labetalol) 10 mg IV Q4H PRN PRN Reason: Hypertension Lisinopril (Zestril) 20 mg PO BID [facility] Last Admin: 06/04/20 21:37 Dose: 20 mg Documented by: Review of Systems All systems: negative Physical Examination Vital signs: Vital Signs Temp Pulse Resp BP Pulse Ox 97.8 F 80 18 168/99 98 06/03/20 16:16 06/03/20 16:16 06/03/20 16:16 06/03/20 16:16 06/03/20 16:16 Results - Laboratory Findings CBC and BMP: 06/05/20 06:30 06/05/20 06:30 PT/INR, D-dimer PT 12.4 Sec. (12.2-14.9) 06/04/20 02:34 INR 0.91 (0.87-1.13) 06/04/20 02:34 Abnormal lab findings: Abnormal Labs 06/04/20 06/04/20 06/04/20 02:34 02:34 10:41 WBC 2.3 L RBC 3.39 L Hgb 8.8 L Hct 26.4 L MCV 78 L MCH 26 L RDW 17.9 H Plt Count 79 L [place] % (Auto) 11.5 H Lymph # (Auto) 0.8 L Seg Neutrophils # 1.1 L Sodium 135 L Chloride 108.4 H Carbon Dioxide 19 L BUN 24 H Glucose 162 H POC Glucose 171 H Hemoglobin A1c Calcium 8.1 L Phosphorus CK-MB (CK-2) CK-MB (CK-2) Rel Index Troponin T 0.038 H NT-Pro-B Natriuret Pep 4134 H Total Protein 5.8 L Albumin 2.4 L HDL Cholesterol 35 L 06/04/20 06/04/20 06/04/20 10:56 10:56 22:01 WBC RBC Hgb Hct MCV MCH RDW Plt Count [place] % (Auto) Lymph # (Auto) Seg Neutrophils # Sodium Chloride Carbon Dioxide BUN Glucose POC Glucose 208 H Hemoglobin A1c 8.1 H Calcium Phosphorus CK-MB (CK-2) 9.1 H CK-MB (CK-2) Rel Index 5.6 H Troponin T 0.043 H NT-Pro-B Natriuret Pep Total Protein Albumin HDL Cholesterol 06/05/20 06/05/20 06/05/20 00:24 06:30 06:30 WBC 2.1 L RBC 3.00 L Hgb 7.9 L Hct 23.1 L MCV 77 L MCH 26 L RDW 18.1 H Plt Count 70 L [place] % (Auto) Lymph # (Auto) Seg Neutrophils # Sodium Chloride 113.4 H Carbon Dioxide BUN 26 H Glucose 182 H POC Glucose Hemoglobin A1c Calcium 8.1 L Phosphorus 4.70 H CK-MB (CK-2) 6.8 H 4.9 H CK-MB (CK-2) Rel Index 4.7 H 4.1 H Troponin T 0.049 H 0.050 H NT-Pro-B Natriuret Pep Total Protein 5.0 L Albumin 1.9 L HDL Cholesterol 06/05/20 07:56 WBC RBC Hgb Hct MCV MCH RDW Plt Count [place] % (Auto) Lymph # (Auto) Seg Neutrophils # Sodium Chloride Carbon Dioxide BUN Glucose POC Glucose 191 H Hemoglobin A1c Calcium Phosphorus CK-MB (CK-2) CK-MB (CK-2) Rel Index Troponin T NT-Pro-B Natriuret Pep Total Protein Albumin HDL Cholesterol - Diagnostic Findings Chest x-ray: image reviewed Assessment and Plan 50 y/o male with diabetes, HTN, and HIV admitted with LE edema and small bilateral pleural effusions with elevated BNP 1. Suggest diuresis first to see if this will improve edema and pleural effusions. Patient's clinical picture is suggestive of CHF with volume overload. If patient does not respond to diuretic therapy, then would consider thoracentesis. Increase in protein would also help with oncotic pressure and edema. Mild pulmonary hypertension is noted, can screen for ANDREW but this can be done as outpatient. Could be related to HIV. Can have PFT done as an outpatient. Patient is not requiring supplemental O2. Will sign off. Call if questions.
[2020-06-05] MEDS: carvediloL 12.5 MG TAB PO SCH ×2 (10:12→22:00)
[2020-06-05] MEDS: FUROSEMIDE 40 MG/4 ML INJ IV SCH (10:12)
[2020-06-05 10:54] LABS: Eosinophils % (Manual) 0 % (0.0-4.3); Total Cells Counted 100
[2020-06-05 10:55] LABS: Anisocytosis 1+; Platelet Estimate Consistent w Auto
[2020-06-05] MEDS: ENOXAPARIN 40 MG/0.4 ML INJ SUB-Q SCH ×2 (22:00→22:04)
[2020-06-06 05:23] LABS: BUN/Creatinine Ratio 21; Blood Urea Nitrogen 25 mg/dL (9-20); Hemolysis Index 2
[2020-06-06 07:49] VITALS: BP 148/71
--- NOTE | 2020-06-06 09:52 | Progress Note ---
Assessment and Plan ECG with NAF. Minimal CE elevation appears nonspecific at this time. Lexiscan MPI stress test was planned for today. However, pt is refusing stress test and states he plans to sign out AMA. Recommend PO lasix 20mg daily and f/u in our office with Dr. Meyer within 2 weeks of discharge ([phone]). The patient has been seen in conjunction with Dr. Meyer who agrees with the assessment and plan of care. - Patient Problems (1) Acute heart failure with preserved ejection fraction Current Visit: Yes Status: Acute (2) Diastolic dysfunction Current Visit: Yes Status: Acute (3) Pleural effusion Current Visit: Yes Status: Acute (4) HTN (hypertension) Current Visit: Yes Status: Chronic (5) Diabetes Current Visit: Yes Status: Chronic (6) HIV (human immunodeficiency virus infection) Current Visit: Yes Status: Chronic (7) Pancytopenia Current Visit: Yes Status: Acute (8) Elevated troponin Current Visit: Yes Status: Acute Subjective Date of service: 06/06/20 Principal diagnosis: pleural effusion; anemia; HIV Interval history: pt resting up at bedside, no current complaints. refusing no wear remote classroom monitor. states he is considering signing out AMA. Objective Last Vital Signs Temp 98.0 F 06/06/20 07:32 Pulse 81 06/06/20 07:32 Resp 20 06/06/20 07:32 BP 148/71 06/06/20 07:32 Pulse Ox 86 06/06/20 07:32 - Physical Examination General: No Apparent Distress HEENT: Positive: PERRL, Normocephaly, Mucus Membranes Moist Neck: Positive: neck supple, trachea midline Cardiac: Positive: Reg Rate and Rhythm, S1/S2 Lungs: Positive: Decreased Breath Sounds Neuro: Positive: Grossly Intact Abdomen: Negative: Tender Skin: Negative: Rash Musculoskeletal: No Fluid Collection, No Pain, Normal Range of Motion Extremities: Absent: edema - Labs and Meds Comprehensive Metabolic Panel 06/06/20 Range/Units 04:16 Sodium 136 L (137-145) mmol/L Potassium 4.4 (3.6-5.0) mmol/L Chloride 107.4 H (98-107) mmol/L Carbon Dioxide 22 (22-30) mmol/L BUN 25 H (9-20) mg/dL Creatinine 1.2 (0.8-1.3) mg/dL Glucose 214 H (75-100) mg/dL Calcium 8.0 L (8.4-10.2) mg/dL - Imaging and Cardiology EKG: report reviewed, image reviewed Echo: report reviewed - EKG Sinus rhythms and dysrhythmias: sinus rhythm
[2020-06-06] MEDS: FUROSEMIDE 40 MG/4 ML INJ IV SCH (09:54)
[2020-06-06] MEDS: carvediloL 12.5 MG TAB PO SCH (09:54)
[2020-06-06] MEDS: ASPIRIN 81 MG TAB CHEW PO SCH (09:54)
[2020-06-06] MEDS: LISINOPRIL 20 MG TAB PO SCH (10:45)
--- NOTE | 2020-06-06 10:51 | Discharge Summary ---
Providers - Providers Date of Admission: 06/04/20 07:41 Date of discharge: 06/06/20 Attending physician: TANYA SALAZAR 06/05/20 09:24 Consult to Physician [CONS] Routine Comment: Consulting Provider: AGUSTINA THOMAS Physician Instructions: Reason For Exam: shortness of breath/h/elevated CE 06/05/20 10:40 Consult to Physician [CONS] Routine Comment: Consulting Provider: DARON DWYER Physician Instructions: Reason For Exam: Left pleural effusion/shortness of breath Primary care physician: IT TRAINER Hospitalization Reason for admission: Worsening shortness of breath, worsening edema lower extremities Condition: Good Pertinent studies: Echo;EF 50 to 55% Chest x-ray; small bilateral pleural effusion Hospital course: 50-year-old male patient with significant past medical history of type 2 diabetes mellitus, hypertension and HIV not on antiretrovirals was admitted through the emergency room with worsening leg edema and worsening shortness of breath off-and-on for the last 4 weeks Patient also complains of unintentional weight gain with edema of lower extr emities and scrotum. Patient was admitted appropriately managed, echocardiogram normal ejection fraction, evaluated by cardiology recommended stress test, patient refused Chest x-ray has bilateral small pleural effusion, evaluated by pulmonary, advised low-dose diuretics and follow-up for outpatient pulmonary function tests Patient also has history of HIV not on any medications, however has an ap pointment to see a local private ID next week. Today patient is comfortable no new complaints vital signs stable Physical examination prior to discharge is unremarkable. Patient is hemodynamically and clinically stable at discharge Discharge Diagnosis --Left pleural effusion; Associated with shortness of breath Pulmonary consultation, Continue IV diuretics Oxygen as needed. titrate O2 sats to more than 90% --Worsening leg edema/possible congestive heart failure IV diuretics, elevate the limb, input output monitoring Echocardiogram for LV function ejection fraction --Mild hyponatremia; Secondary to fluid overload, IV diuretics Closely monitor electrolytes --Acute diastolic congestive heart failure IV diuretics, input output monitoring, beta-blockers CONCEPCIÓN inhibitors, fluid restriction, low-sodium diet Echocardiogram EF 50 to 55% Cardiology following --Non-ST elevation ME; elevated troponins Probably nonspecific in the setting of congestive heart failure Serial cardiac enzymes elevated troponins Cardiology evaluated the patient Possible stress test prior to discharge --History of type 2 diabetes mellitus; Accu-Cheks, sliding scale coverage, ADA diet Insulin as needed --Hypertensive urgency; present on admission Closely monitor blood pressures, add antihypertensives PRN medications --History of HIV; not on any medications Patient has an appointment to see infectious diseases next week --Pancytopenia; probably secondary to underlying HIV disease Closely monitor --Severe protein calorie malnutrition; nutrition supplements Supportive care, nutrition consult --DVT prophylaxis; Lovenox Disposition: DC-01 TO HOME OR SELFCARE Time spent for discharge: 35 min Core Measure Documentation - Palliative Care Palliative Care/ Comfort Measures: Not Applicable - Core Measures Any of the following diagnoses?: none Exam - Constitutional Vitals: Temp Pulse Resp BP Pulse Ox 98.0 F 83 18 148/71 86 06/06/20 07:32 06/06/20 09:54 06/06/20 10:00 06/06/20 09:54 06/06/20 07:32 General appearance: Present: no acute distress, well-nourished, obese - EENT Eyes: Present: PERRL, EOM intact - Neck Neck: Present: supple, normal ROM - Respiratory Respiratory effort: normal Respiratory: bilateral: diminished, negative: rales, rhonchi, wheezing - Cardiovascular Rhythm: regular Heart Sounds: Present: S1 & S2 - Extremities Extremities: no ischemia Extremity abnormal: edema - Abdominal General gastrointestinal: Present: soft, non-tender, non-distended, normal bowel sounds - Integumentary Integumentary: Present: clear, warm - Musculoskeletal Musculoskeletal: strength equal bilaterally - Psychiatric Psychiatric: appropriate mood/affect, cooperative - Neurologic Neurologic: moves all extremities Plan Activity: no restrictions Diet: diabetic, other Additional Instructions: If you have worsening symptoms contact MD or go to emergency room. Advised to follow with your private ID per schedule. Advised to follow private pulmonary/lung doctor for further evaluation and management of pleural effusion Follow up with: PRIMARY JOSSY, [Primary Care Provider] - 3-5 Days DARON DWYER MD [Staff Physician] - 14 Days Prescriptions: hydrALAZINE [Apresoline TAB] 25 mg PO Q8HR #90 tablet carvediloL [Coreg] 12.5 mg PO BID #60 tablet Furosemide [Lasix] 20 mg PO QDAY #30 tablet lisinopriL [Zestril TAB] 20 mg PO DAILY #30 tablet
--- NOTE | 2020-06-06 10:53 | Progress Note ---
Assessment and Plan 50 y/o male with diabetes, HTN, and HIV admitted with LE edema and small bilateral pleural effusions with elevated BNP 1. Agree with diuresis. Subjective Date of service: 06/06/20 Principal diagnosis: pleural effusion; anemia; HIV Interval history: No acute events. patient being discharged today. Refused stress test. Objective Vital Signs - 12hr 06/06/20 06/06/20 06/06/20 03:32 03:54 07:32 Temperature 98.6 F 98.0 F Pulse Rate 83 81 Respiratory 18 20 Rate Blood Pressure 145/69 148/71 O2 Sat by Pulse 94 86 Oximetry 06/06/20 06/06/20 09:54 10:00 Temperature Pulse Rate 83 Respiratory 18 Rate Blood Pressure 148/71 O2 Sat by Pulse Oximetry CBC and BMP: 06/05/20 06:30 06/06/20 04:16 ABG, PT/INR, D-dimer: PT/INR, D-dimer PT 12.4 Sec. (12.2-14.9) 06/04/20 02:34 INR 0.91 (0.87-1.13) 06/04/20 02:34 Abnormal lab findings: Abnormal Labs 06/04/20 06/04/20 06/04/20 02:34 02:34 10:41 WBC 2.3 L RBC 3.39 L Hgb 8.8 L Hct 26.4 L MCV 78 L MCH 26 L RDW 17.9 H Plt Count 79 L [place] % (Auto) 11.5 H Lymph # (Auto) 0.8 L Monocytes % (Manual) Seg Neutrophils # 1.1 L Seg Neutrophils # Man Lymphocytes # (Manual) Sodium 135 L Chloride 108.4 H Carbon Dioxide 19 L BUN 24 H Glucose 162 H POC Glucose 171 H Hemoglobin A1c Calcium 8.1 L Phosphorus CK-MB (CK-2) CK-MB (CK-2) Rel Index Troponin T 0.038 H NT-Pro-B Natriuret Pep 4134 H Total Protein 5.8 L Albumin 2.4 L HDL Cholesterol 35 L 06/04/20 06/04/20 06/04/20 10:56 10:56 22:01 WBC RBC Hgb Hct MCV MCH RDW Plt Count [place] % (Auto) Lymph # (Auto) Monocytes % (Manual) Seg Neutrophils # Seg Neutrophils # Man Lymphocytes # (Manual) Sodium Chloride Carbon Dioxide BUN Glucose POC Glucose 208 H Hemoglobin A1c 8.1 H Calcium Phosphorus CK-MB (CK-2) 9.1 H CK-MB (CK-2) Rel Index 5.6 H Troponin T 0.043 H NT-Pro-B Natriuret Pep Total Protein Albumin HDL Cholesterol 06/05/20 06/05/20 06/05/20 00:24 06:30 06:30 WBC 2.1 L RBC 3.00 L Hgb 7.9 L Hct 23.1 L MCV 77 L MCH 26 L RDW 18.1 H Plt Count 70 L [place] % (Auto) Lymph # (Auto) Monocytes % (Manual) 8.0 H Seg Neutrophils # Seg Neutrophils # Man 1.3 L Lymphocytes # (Manual) 0.6 L Sodium Chloride 113.4 H Carbon Dioxide BUN 26 H Glucose 182 H POC Glucose Hemoglobin A1c Calcium 8.1 L Phosphorus 4.70 H CK-MB (CK-2) 6.8 H 4.9 H CK-MB (CK-2) Rel Index 4.7 H 4.1 H Troponin T 0.049 H 0.050 H NT-Pro-B Natriuret Pep Total Protein 5.0 L Albumin 1.9 L HDL Cholesterol 06/05/20 06/05/20 06/05/20 07:56 12:20 17:00 WBC RBC Hgb Hct MCV MCH RDW Plt Count [place] % (Auto) Lymph # (Auto) Monocytes % (Manual) Seg Neutrophils # Seg Neutrophils # Man Lymphocytes # (Manual) Sodium Chloride Carbon Dioxide BUN Glucose POC Glucose 191 H 207 H 204 H Hemoglobin A1c Calcium Phosphorus CK-MB (CK-2) CK-MB (CK-2) Rel Index Troponin T NT-Pro-B Natriuret Pep Total Protein Albumin HDL Cholesterol 06/06/20 04:16 WBC RBC Hgb Hct MCV MCH RDW Plt Count [place] % (Auto) Lymph # (Auto) Monocytes % (Manual) Seg Neutrophils # Seg Neutrophils # Man Lymphocytes # (Manual) Sodium 136 L Chloride 107.4 H Carbon Dioxide BUN 25 H Glucose 214 H POC Glucose Hemoglobin A1c Calcium 8.0 L Phosphorus CK-MB (CK-2) CK-MB (CK-2) Rel Index Troponin T NT-Pro-B Natriuret Pep Total Protein Albumin HDL Cholesterol
[2020-06-06] MEDS ORDERED: INSULIN LISPRO 100 UNIT/ML VIAL 3 mL SUB-Q SCH ×2 (11:30)
[2020-06-06] MEDS ORDERED: INSULIN GLARGINE 100 UNITS/ML SUB-Q SCH (22:00)
== END 2020-06-06 12:15 | disposition home or self-care (01) ==
LOC: ED 16:01 → 4A 06-04 07:41
PROVIDERS: ADMIT Internal Medicine; ATTEND Internal Medicine
DX: J90 Pleural effusion, not elsewhere classified (principal); R60.0 Localized edema; I11.0 Hypertensive heart disease with heart failure; I50.31 Acute diastolic (congestive) heart failure; E87.1 Hypo-osmolality and hyponatremia; I21.4 Non-ST elevation (NSTEMI) myocardial infarction; E11.9 Type 2 diabetes mellitus without complications; I16.0 Hypertensive urgency; D61.818 Other pancytopenia; E43 Unspecified severe protein-calorie malnutrition; E87.70 Fluid overload, unspecified; D69.6 Thrombocytopenia, unspecified; D50.9 Iron deficiency anemia, unspecified; Z79.4 Long term (current) use of insulin; Z79.899 Other long term (current) drug therapy
CPT/HCPCS: 36415; 71045; 80048; 80053; 80061; 80076; 81001; 82550; 82553; 82962; 83036; 83735; 83880; 84100; 84484; 85025; 85610; 85730; 93005; 93306; 96372; 96374; 96376; 99285; G0378; J1650; J1940; 85007